=== PATIENT | female | born 1960 | race Caucasian/White ===

== ENCOUNTER 2024-07-08 18:22 | Emergency (ER) | payer MEDICARE, SELFPAY ==
[2024-07-08 18:31] VITALS: BP 130/73; PULSE 98; O2SAT 99
--- NOTE | 2024-07-08 18:35 | DI.RAD.S_ITS ---
PROCEDURE: XR CHEST 1V INDICATIONS: chest pain TECHNIQUE: One view of the chest was acquired. COMPARISON: None. FINDINGS: Surgical changes and devices: Right chest wall port tip projects over the high right atrium. Lungs and pleura: Lungs are clear. No pleural effusions or pneumothorax. Mediastinum: Mediastinal contours appear normal. Heart size is normal. Bones and chest wall: No suspicious bony lesions. Overlying soft tissues appear unremarkable. IMPRESSION: No acute cardiopulmonary abnormality is seen. Dictated by: Mahesh Novak M.D. on 07/08/2024 at 19:18 Approved by: Mahesh Novak M.D. on 07/08/2024 at 19:19
[2024-07-08 18:38] VITALS: BP 130/73; PULSE 97; RESP 22; TEMP 36.6; O2SAT 99; BMI 17.8
--- NOTE | 2024-07-08 18:47 | EKG_ITS ---
[facility] [address] [place] [address] Test Date: 2024-07-08 Pat Name: Gricelda Koehler Department: [facility] Room: Gender: Female [employer]: : 1960 Requested By: Order Number: [id number] Reading MD: Alex Castro MD Measurements Intervals [place] Rate: 86 P: 76 SC: 134 QRS: 21 QRSD: 94 T: 65 QT: 358 QTc: 428 Interpretive Statements Normal sinus rhythm Possible Left atrial enlargement Left ventricular hypertrophy with repolarization abnormality ( Sokolow-Schmitz , [place] product ) Electronically Signed On 07-09-2024 6:48:21 PDT by Alex Castro MD
[2024-07-08 18:51] LABS: Add Manual Diff / Slide Review NO; Basophils Absolute Auto 0 /uL (0-100); Basophils Percent Auto 0.2 % (0-2); Eosinophils Absolute Auto 200 /uL (0-450); Eosinophils Percent Auto 3.2 % (2-4); Hematocrit 30.9 % (36-46); Hemoglobin 9.8 g/dL (12.0-16.0); Lymphocytes Absolute Auto 1500 /uL (1100-4500); Lymphocytes Percent Auto 28.6 % (25-40); Mean Corpuscular HGB Conc 31.7 % (30-36); Mean Corpuscular Hemoglobin 25.2 PG (26-34); Mean Corpuscular Volume 79.7 fL (80-100); Monocytes Absolute Auto 500 /uL (0-900); Monocytes Percent Auto 9.4 % (3-14); Neutrophils Absolute Auto 3200 /uL (1500-7000); Neutrophils Percent Auto 58.6 % (50-75); Platelet Count 300 X10^3/uL (150-400); Red Blood Cell Count 3.87 X10^6/uL (4.0-5.2); Red Cell Distribution Width 15.9 % (11.6-14.8); White Blood Cell Count 5.4 X10^3/uL (4.5-11.0)
--- NOTE | 2024-07-08 18:58 | ED.DIZZY ---
HPI - Dizziness General Chief Complaint: Dizziness Stated Complaint: blood sugars and fluids stabilized, sent by dr Time Seen by Provider: 07/08/24 18:27 Source: patient Mode of arrival: Wheelchair History of Present Illness HPI Narrative: 63-year-old female with history of esophageal cancer with Mets to liver and ovaries, immunotherapy-induced IDDM presents by private vehicle from her primary care doctor's office for lightheadedness and elevated blood sugars. Patient states that several months ago the last round of immunotherapy she underwent caused her to become an insulin-dependent diabetic. She has had difficulty in regulating her sugars. She states that she has been sleeping more frequently and when she wakes up her sugars are usually in the 500s. She tries to get them down to the 200s, but is not always successful. Today at her primary care doctor's office she felt very lightheaded and nearly passed out with elevated blood sugar readings. Patient was sent to the ER for hydration and stabilization. She states that her appetite has been normal and she has been eating and drinking her usual amount. By the time of arrival to the emergency department patient stated that she felt much better. She has started morphine therapy for her cancer related pains, which does occasionally cause her to be lightheaded. She is planning ongoing to hospice care soon. Related Data Allergies Allergy/AdvReac Type Severity Reaction Status Date / Time No Known Drug Allergies Allergy Verified 07/08/24 18:38 Patient History Social History Smoking Status: Never smoker Smoking Status: Never smoker Substance Use Type: does not use Exam Initial Vital Signs Initial Vital Signs: Vital Signs Pulse Rate 98 H 07/08/24 18:31 Blood Pressure 130/73 07/08/24 18:31 Pulse Oximetry 99 07/08/24 18:31 Const: Awake, alert, debilitated, frail, underweight Cardiac: regular rate, regular rhythm RESP: unlabored, clear bilaterally, no wheezing GI: Soft, nontender, nondistended, no rebound, no guarding Skin: Warm, Dry, intact, no rashes Neuro: AO x3, CN II-XII grossly intact, moves all extremities Course Orders Ordered: ED Orders 07/08/24 18:35 XR chest 1V Stat EKG-12 Lead Stat 07/08/24 18:42 Complete Blood Count AUTO DIFF Stat Comprehensive Metabolic Panel Stat Lipase Stat Magnesium Stat NT-proBNP (BNP-Adult 18+) Stat PTT Partial Thromboplastin Pk Stat Prothrombin Time INR Stat Troponin & CK Cardiac Panel Stat Discontinued Medications Sodium Chloride (Normal Saline 0.9%) 1,000 mls @ 1,000 mls/hr IV BOLUS ONE Stop: 07/08/24 19:57 Last Infusion: 07/08/24 19:47 Dose: Infused Documented By: Admin: 07/08/24 19:18 Dose: 1,000 mls/hr Documented By: JANAY Insulin Human Regular (Insulin Regular 100 Unit/Ml 3 Ml Vial) 5 unit IV NOW ONE Stop: 07/08/24 19:39 Last Admin: 07/08/24 19:48 Dose: 5 unit Documented By: JANAY Co-signed By: LIZ Vital Signs Vital signs: Vital Signs - 8 hr 07/08/24 18:31 07/08/24 18:31 07/08/24 18:38 Temperature 97.8 F Pulse Rate 98 H 97 H Respiratory Rate 22 Blood Pressure 130/73 130/73 Pulse Oximetry 99 99 Oxygen Delivery Method Room Air 07/08/24 19:00 07/08/24 19:00 07/08/24 19:30 Temperature Pulse Rate 83 84 Respiratory Rate 16 15 Blood Pressure 114/69 Pulse Oximetry 97 98 Oxygen Delivery Method Room Air 07/08/24 19:30 07/08/24 20:00 07/08/24 20:00 Temperature Pulse Rate 91 H Respiratory Rate 15 Blood Pressure 111/64 122/59 L Pulse Oximetry 99 Oxygen Delivery Method 07/08/24 20:30 07/08/24 20:30 Temperature Pulse Rate 87 Respiratory Rate 12 Blood Pressure 116/64 Pulse Oximetry 97 Oxygen Delivery Method Room Air MDM - Dizziness Differential Diagnosis Differential diagnosis: Likely orthostatic hypotension and other (Dehydration, DKA) Lab Data 07/08/24 18:42 07/08/24 18:42 Labs: Lab Results 07/08/24 Range/Units 18:42 WBC 5.4 (4.5-11.0) X10^3/uL RBC 3.87 L (4.0-5.2) X10^6/uL Hgb 9.8 L (12.0-16.0) g/dL Hct 30.9 L (36-46) % MCV 79.7 L (80-100) fL MCH 25.2 L (26-34) PG MCHC 31.7 (30-36) % RDW 15.9 H (11.6-14.8) % Plt Count 300 (150-400) X10^3/uL Neut % (Auto) 58.6 (50-75) % Lymph % (Auto) 28.6 (25-40) % Nance % (Auto) 9.4 (3-14) % Eos % (Auto) 3.2 (2-4) % Baso % (Auto) 0.2 (0-2) % Neut # (Auto) 3200 (0290-3418) /uL Lymph # (Auto) 1500 (1161-0999) /uL Nance # (Auto) 500 (0-900) /uL Eos # (Auto) 200 (0-450) /uL Baso # (Auto) 0 (0-100) /uL PT 9.9 (9.4-12.5) SECONDS INR 0.9 (0.9-1.3) APTT 30 (25.1-36.5) SECONDS Sodium 131 L (137-145) mmol/L Potassium 4.6 (3.4-5.1) mmol/L Chloride 99 (98-107) mmol/L Carbon Dioxide 24 (22-32) mmol/L BUN 13 (7-17) mg/dL Creatinine 0.84 (0.52-1.04) mg/dL Estimated GFR > 60 (>60) mL/min BUN/Creatinine Ratio 15.5 (6-22) Glucose 285 H (80-110) mg/dL Calcium 9.1 (8.4-10.2) mg/dL Magnesium 1.8 (1.6-2.3) mg/dL Total Bilirubin 0.4 (0.2-1.3) mg/dL AST 49 H (14-36) IU/L ALT 46 H (<35) IU/L Alkaline Phosphatase 110 (38-126) U/L Total Creatine Kinase 36 (30-135) U/L Troponin I 0.019 (0.01-0.034) ng/mL NT-Pro-B Natriuret Pep 1350 H (<125) pg/mL Total Protein 7.0 (6.3-8.2) g/dL Albumin 4.0 (3.5-5.0) g/dL Globulin 3.0 (1.7-4.1) g/dL Albumin/Globulin Ratio 1.3 (1.0-2.8) Lipase 31 (23-300) U/L Point of Care Testing Glucose POC 138 MDM Narrative Medical decision making narrative: Chronically unwell appearing but not acutely toxic patient presenting for near syncopal episode episode at her doctor's office as well as elevated blood sugar readings. In the emergency department patient states she already feels much better than when she was at her doctor's office. Perhaps mildly dry mucous membranes. Patient does have temporal wasting consistent with advanced cancer. Accu-Chek on arrival in the 300s. Laboratory work is reviewed. No priors for comparison. WBC count 5.4, hemoglobin 9.8, platelet count 300, sodium 131, potassium 4.6, CO2 24, creatinine 0.84, T bili 0.4, AST 49, ALT 46, alk phos 110, troponin 0.019. EKG normal sinus rhythm without concerning findings. Elevated liver enzymes not surprising given that patient has known Mets to her liver. Patient received IV fluids as well as a small bolus of IV insulin. She reports feeling significantly better and ready to go home. Patient was counseled to continue to monitor her blood sugars using her arm monitor. Discharge Plan Departure Patient Disposition: Home Clinical Impression: Near syncope, Hyperglycemia Instructions: DI for Dizziness-Nonvertigo Activity Restrictions/Additional Instructions: Your sugars have come down since you has been in the emergency department. Continue to keep a close eye on them via your arm sensor. Follow up with your primary care doctor. Stand Alone Forms: Patient Portal/API
[2024-07-08 19:00] VITALS: BP 114/69; PULSE 83; RESP 16; O2SAT 97
[2024-07-08 19:03] LABS: Alanine Aminotransferase 46 IU/L (<35); Albumin Globulin Ratio 1.3 (1.0-2.8); Alkaline Phosphatase 110 U/L (38-126); Aspartate Aminotransferase 49 IU/L (14-36); BUN Creatinine Ratio 15.5 (6-22); Bilirubin Total 0.4 mg/dL (0.2-1.3); Blood Urea Nitrogen 13 mg/dL (7-17); Calcium 9.1 mg/dL (8.4-10.2); Carbon Dioxide 24 mmol/L (22-32); Chloride 99 mmol/L (98-107); Creatine Kinase 36 U/L (30-135); Estimated Glomerular Filt Rate > 60 mL/min (>60); Glucose 285 mg/dL (80-110); HEMOLYSIS 16 (0-50); Lipase 31 U/L (23-300); Magnesium 1.8 mg/dL (1.6-2.3); Potassium 4.6 mmol/L (3.4-5.1); Sodium 131 mmol/L (137-145)
[2024-07-08 19:06] LABS: INR 0.9 (0.9-1.3); Prothrombin Time 9.9 SECONDS (9.4-12.5)
[2024-07-08 19:08] LABS: PTT Partial Thromboplastin Tim 30 SECONDS (25.1-36.5)
[2024-07-08 19:15] LABS: NT-proBNP (BNP-Adult 18+) 1350 pg/mL (<125); Troponin I 0.019 ng/mL (0.01-0.034)
[2024-07-08] MEDS: SODIUM CHLORIDE 0.9% 1,000 ML 1000 ML IV (19:18)
[2024-07-08 19:30] VITALS: BP 111/64; PULSE 84; RESP 15; O2SAT 98
[2024-07-08] MEDS: INSULIN REGULAR 100 UNIT/ML 3 ML VIAL IV (19:48)
[2024-07-08 20:00] VITALS: BP 122/59; PULSE 91; RESP 15; O2SAT 99
[2024-07-08 20:30] VITALS: BP 116/64; PULSE 87; RESP 12; O2SAT 97
== END 2024-07-08 20:59 | disposition home or self-care (01) ==
PROVIDERS: Emergency Provider Emergency Medicine
DX: R55 Syncope and collapse (principal); E11.65 Type 2 diabetes mellitus with hyperglycemia; R07.9 Chest pain, unspecified; R79.89 Other specified abnormal findings of blood chemistry
CPT/HCPCS: 36415; 71045; 80053; 82550; 82962; 83690; 83735; 83880; 84484; 85025; 85610; 85730; 93005; 93010; 96374; 99284